=== PATIENT | female | born 1990 | race Caucasian/White ===

== ENCOUNTER 2016-10-23 09:49 | Emergency (ER) | payer OTHER ==
--- NOTE | 2016-10-23 10:10 | EDM.PDOC ---
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 She's describes the we are feeling in the outer aspect of the arm as like a water trickling down her arm. This suggests a neurogenic source. No recent illness. No cough cold sputum production no fever or chills. She is a never smoker. No recent trauma to the chest wall. She has no problems with GERD. Symptoms started yesterday. No problems sleeping discomfort a little worse this morning and the left precordial chest and a new onset of the left upper outer deltoid paresthesias. Symptom Onset Date: 10/22/16 Timing/Duration: Reports: Hour(s):, Intermittent Severity: mild Location, General: Reports: chest (left precordial chest with some paresthesias he is felt in the upper outer lateral left deltoid this morning.) Quality: Reports: Ache, Pressure (mild.) Improves with: Reports: None Worsens with: Reports: None Context, General: Denies: Activity, Exercise, Lifting, Sick contact, Trauma, Other Associated Symptoms (General): Reports: chest pain. 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 Denies: shortness of breath, wheezing, pleuritic chest pain, cough, sputum, hemoptysis, other Cardiovascular: Reports: Chest pain (left upper anterior chest pressure discomfort). Denies: Blood pressure problem, Claudication, Dyspnea on exertion , Edema, Lightheadedness, Orthopnea, Palpitations, PND, Syncope Endocrine: Reports: no symptoms GI/Abdominal: Reports: No symptoms : Reports: no symptoms Musculoskeletal: Reports: no symptoms, other (varices in the distribution of the lateral deltoid.). Denies: shoulder pain, arm pain, back pain, joint swelling Skin: Reports: no symptoms Neurological: Reports: other (varices he is left lateral upper deltoid.) Psychiatric: Reports: No symptoms Hematologic/Lymphatic: Reports: no symptoms Immunologic: Reports: no symptoms ED EXAM, GENERAL - Physical Exam Exam: See Below Exam Limited By: No limitations General Appearance: alert, WD/WN, no apparent distress, other (normal vital sign ) Ears: normal TMs Throat/Mouth: Normal inspection, Normal lips, Normal teeth, Normal oropharynx Head: atraumatic, normocephalic Neck: normal inspection, supple, non-tender, full range of motion. No: carotid bruit, lymphadenopathy (L), lymphadenopathy (R), thyromegaly Respiratory/Chest: no respiratory distress, lungs clear, normal breath sounds, no accessory muscle use, other (no chest wall tenderness elicited. No rib head subluxation identified) Cardiovascular: normal peripheral pulses, regular rate, rhythm, no edema, no gallop, no murmur Peripheral Pulses: 2+: posterior tibial (L), posterior tibial (R), dorsalis pedis (L), dorsalis pedis (R) GI/Abdominal: normal bowel sounds, soft, non tender, no organomegaly, no distention Back Exam: normal inspection, full range of motion. No: CVA tenderness (L), CVA tenderness (R) Extremities: normal inspection, normal range of motion, non-tender, no pedal edema, normal capillary refill, other (full unrestricted range of her head.) Neurological: alert, oriented, CN II-XII intact, normal cognition, normal gait Psychiatric: normal affect, normal mood Skin Exam: Warm, Dry, Intact, Normal color, No rash EKG INTERPRETATION EKG Date: 10/23/16 Time: 10:00 Rhythm: NSR Rate (beats/min): 65 [place]: normal P-wave: present QRS: normal ST-T: other (T wave flattening in aVL) EKG Interpretation Comments: normal ECG Course - Vital Signs Last Recorded V/S: Last Vital Signs Temp 36.4 C 10/23/16 09:58 Pulse 76 10/23/16 12:05 Resp 20 10/23/16 12:05 BP 113/75 10/23/16 12:05 Pulse Ox 100 10/23/16 12:05 - Orders/Labs/Meds Orders: Active Orders 24 hr Category Date Time Status EKG 12 Lead [EKG Documentation Completion] [RC] STAT Care 10/23/16 09:58 Active Labs: Laboratory Tests 10/23/16 10/23/16 10/23/16 Range/Units 10:20 10:20 10:20 WBC 5.20 (3.98-10.04) K/mm3 RBC 4.51 (3.98-5.22) M/mm3 Hgb 12.8 (11.2-15.7) gm/L Hct 37.7 (34.1-44.9) % MCV 83.6 (79.4-94.8) fl MCH 28.4 (25.6-32.2) pg MCHC 34.0 (32.2-35.5) g/dl RDW Std Deviation 38.9 (36.4-46.3) fL Plt Count 229 (182-369) K/mm3 MPV 11.2 (9.4-12.3) fl Neutrophils % (Manual) 58 (40-60) % Band Neutrophils % 1 (0-10) % Lymphocytes % (Manual) 36 (20-40) % Atypical Lymphs % 0 % Monocytes % (Manual) 4 (2-10) % Eosinophils % (Manual) 1 (0.7-5.8) % Basophils % (Manual) 0 L (0.1-1.2) Platelet Estimate Adequate RBC Morph Comment Normal D-Dimer, Quantitative < 0.19 L (0.19-0.59) mg/L Sodium 140 (136-145) mEq/L Potassium 4.0 (3.5-5.1) mEq/L Chloride 104 (98-107) mEq/L Carbon Dioxide 26 (21-32) mEq/L Anion Gap 14.0 (5-15) BUN 12 (7-18) mg/dL Creatinine 0.9 (0.55-1.02) mg/dL Est Cr Clr Drug Dosing 83.74 mL/min Estimated GFR (MDRD) > 60 (>60) mL/min BUN/Creatinine Ratio 13.3 L (14-18) Glucose 89 (74-106) mg/dL Calcium 8.8 (8.5-10.1) mg/dL Total Bilirubin 1.0 (0.2-1.0) mg/dL AST 17 (15-37) U/L ALT 18 (14-59) U/L Alkaline Phosphatase 58 (46-116) U/L CK-MB (CK-2) < 0.5 (0-3.6) ng/ml Troponin I < 0.017 (0.00-0.056) ng/mL Total Protein 7.6 (6.4-8.2) g/dl Albumin 4.2 (3.4-5.0) g/dl Globulin 3.4 gm/dL Albumin/Globulin Ratio 1.2 (1-2) Urine HCG, Qual (NEGATIVE) 10/23/16 Range/Units 10:20 WBC (3.98-10.04) K/mm3 RBC (3.98-5.22) M/mm3 Hgb (11.2-15.7) gm/L Hct (34.1-44.9) % MCV (79.4-94.8) fl MCH (25.6-32.2) pg MCHC (32.2-35.5) g/dl RDW Std Deviation (36.4-46.3) fL Plt Count (182-369) K/mm3 MPV (9.4-12.3) fl Neutrophils % (Manual) (40-60) % Band Neutrophils % (0-10) % Lymphocytes % (Manual) (20-40) % Atypical Lymphs % % Monocytes % (Manual) (2-10) % Eosinophils % (Manual) (0.7-5.8) % Basophils % (Manual) (0.1-1.2) Platelet Estimate RBC Morph Comment D-Dimer, Quantitative (0.19-0.59) mg/L Sodium (136-145) mEq/L Potassium (3.5-5.1) mEq/L Chloride (98-107) mEq/L Carbon Dioxide (21-32) mEq/L Anion Gap (5-15) BUN (7-18) mg/dL Creatinine (0.55-1.02) mg/dL Est Cr Clr Drug Dosing mL/min Estimated GFR (MDRD) (>60) mL/min BUN/Creatinine Ratio (14-18) Glucose (74-106) mg/dL Calcium (8.5-10.1) mg/dL Total Bilirubin (0.2-1.0) mg/dL AST (15-37) U/L ALT (14-59) U/L Alkaline Phosphatase (46-116) U/L CK-MB (CK-2) (0-3.6) ng/ml Troponin I (0.00-0.056) ng/mL Total Protein (6.4-8.2) g/dl Albumin (3.4-5.0) g/dl Globulin gm/dL Albumin/Globulin Ratio (1-2) Urine HCG, Qual Negative (NEGATIVE) Meds: Medications Discontinued Medications Generic Name Dose Route Start Last Admin Trade Name Freq PRN Reason Stop Dose Admin Sodium Chloride 1,000 mls @ 125 mls/hr 10/23/16 10:15 10/23/16 10:30 Normal Saline IV 125 mls/hr ASDIRECTED ROSANA Administration - Radiology Interpretation Free Text/Narrative:: 26-year-old female brought to the ED for evaluation of left precordial chest discomfort and new onset of paresthesias in the upper outer lateral deltoid area of her shoulder today. There is easy is started this morning left shoulder precordial chest discomfort started yesterday. Examination of the chest lungs chest wall and left shoulder are completely normal. Plan ECG is sinus at 65 with no abnormalities. Two-view chest x-ray to be done. Routine labs to include a d-dimer. Currently she's not using any form of control. She is on her fifth day of her period at this time. - Re-Assessments/Exams Free Text/Narrative Re-Assessment/Exam: 10/23/16 11:47chest x-ray x2 view is completely within normal limits. White count is 5.20 with a normal differential hemoglobin 12.8 hematocrit 37.7 cleansed and 29,000. D-dimer prove to be negative. Cardiac markers are normal chemistry is completely normal. Issue reassured in this regard. Appears to have a viral inflammation or of the chest wall. Advised to keep an eye out for the development of shingles rash over the next week due to the paresthesias in the left lateral deltoid area. Motrin 600 mg every 6 hours by mouth for chest discomfort if needed. Departure - Departure Time of Disposition: 11:53 Disposition: Home, Self-Care 01 Condition: fair Clinical Impression: Non-cardiac chest pain, Acute chest wall pain Instructions: Chest Wall Pain, [id number], Nonspecific Chest Pain, Easy-to- Read Referrals: Isiah Morton MD [Primary Care Provider] - Forms: ED Department Discharge Additional Instructions: evaluation and management today in regards to development of left upper anterior chest pain radiating towards the left shoulder overnight. Left upper chest discomfort started yesterday and was still present this morning. Associated numbness tingling a weird sensation over the upper outer deltoid area of the shoulder noted this morning. We call these paresthesias. Complete workup revealed chest x-ray 2 view to be completely normal heart tracing normal. All of the lab work including cardiac markers and markers to rule out blood clot in the lungs were normal. White count was also normal at 5.2 with no signs of underlying bacterial infection. It is kind of discomforts are usually viral in origin and can last anywhere from 10-14 days. May use Motrin 600 mg every 6 hours if needed for chest discomfort. He been out for development of rash on the anterior chest upper shoulder upper arm over the next 5-7 days and other rashes noted which could be shingles can return to medical care. Return to medical care of course if the chest pain gets worse in any way. - My Orders Last 24 Hours: My Active Orders 10/23/16 09:58 EKG 12 Lead [EKG Documentation Completion] [RC] STAT - Assessment/Plan Last 24 Hours: My Active Orders 10/23/16 09:58 EKG 12 Lead [EKG Documentation Completion] [RC] STAT
[2016-10-23] MEDS ORDERED: Sodium Chloride 0.9% 1,000 ML IV SCH (10:15)
--- NOTE | 2016-10-23 11:47 | CR ---
Chest: Two views of the chest were obtained. Comparison: No previous chest x-ray. Heart size and mediastinum are normal. Lungs are clear. Bony structures are unremarkable. Impression: 1. Nothing acute is seen on two-view chest x-ray. Diagnostic code #1
[2016-10-23 12:11] VITALS: BP 113/75
== END 2016-10-23 12:05 | disposition home or self-care (01) ==
LOC: JD.ED 09:49
DX: R07.89 Other chest pain (principal)
CPT/HCPCS: 36415; 71020; 80053; 81025; 82553; 84484; 85025; 85379; 93005; 96360; 99285; J7040; 99284